=== PATIENT | female | born 1940 | race Caucasian/White ===

== ENCOUNTER 2019-10-08 20:04 | Emergency (ER) | payer MEDICARE, BC ==
[~2019-10-08] VITALS: Ht 154.9 cm; Wt 61.2 kg
[2019-10-08] MEDS ORDERED: ATOR20TA27 PO (20:14)
[2019-10-08] MEDS ORDERED: [UNRECOGNIZED DRUG - REMARK] (20:14)
[2019-10-08] MEDS ORDERED: ASPI81TA31 PO (20:14)
[2019-10-08] MEDS ORDERED: [UNRECOGNIZED DRUG - REMARK] (20:14)
--- NOTE | 2019-10-08 20:20 | NUR ---
Dr St into eval patient.
[2019-10-08] MEDS ORDERED: EPINEPHRINE 1 MG/1 ML AMP ONE (20:23)
[2019-10-08] MEDS ORDERED: EPINEPHRINE-PF 1:1000 1 MG/ML AMPUL IV ONE (20:30)
[2019-10-08 20:35] VITALS: BP 140/66
--- NOTE | 2019-10-08 20:35 | NUR ---
Patient discharged to home in stable conditon. Written and verbal after care instructions given. Patient verbalizes understanding of instructions. Walked out of ER with no distress noted.
== END 2019-10-08 20:37 | disposition home or self-care (01) ==
LOC: ER 20:08
DX: S01.512A Laceration without foreign body of oral cavity, initial encounter (principal); E78.5 Hyperlipidemia, unspecified; Z79.82 Long term (current) use of aspirin; Z79.899 Other long term (current) drug therapy; W50.3XXA Accidental bite by another person, initial encounter; Y93.89 Activity, other specified; Y92.89 Other specified places as the place of occurrence of the external cause; Y99.8 Other external cause status
CPT/HCPCS: 99282; J0171; A4663

== ENCOUNTER 2022-11-20 20:13 | Inpatient (IN) | payer MEDICARE, BC ==
[~2022-11-20] VITALS: Ht 157.5 cm; Wt 90.7 kg
[~2022-11-20 20:13] MED LIST: ASPI81TA31 PO; ATOR20TA27 PO; [UNRECOGNIZED DRUG - REMARK]; [UNRECOGNIZED DRUG - REMARK]
[2022-11-20] MEDS ORDERED: PROCHLORPERAZINE EDISYLATE 10 MG/2 ML VIAL IV ONE (21:30)
[2022-11-20 22:10] LABS: HEMATOCRIT 37.8 % (31.2-41.9); MEAN CORPUSCULAR HEMOGLOBIN 32.2 uug (24.7-32.8); MEAN CORPUSCULAR VOLUME 98.4 fL (75.5-95.3); PLATELET COUNT (AUTO) 209 K/uL (179-408)
[2022-11-20 22:35] LABS: ALANINE AMINOTRANSFERASE 43 U/L (14-59); ALKALINE PHOSPHATASE 69 U/L (50-136); ASPARTATE AMINOTRANSFERASE 31 U/L (15-37); BILIRUBIN,DIRECT 0.1 mg/dL (0.0-0.2); BILIRUBIN,TOTAL 0.3 mg/dL (0.2-1.0); CARBON DIOXIDE 29 mmol/L (21-32); CHLORIDE 105 mmol/L (98-107); CREATININE 1.1 mg/dL (0.6-1.3); GLUCOSE 188 mg/dL (74-106); POTASSIUM 4.4 mmol/L (3.5-5.1); TOTAL PROTEIN, SERUM 7.3 g/dL (6.4-8.2); UREA NITROGEN, BLOOD 29 mg/dL (7-18)
[2022-11-20] MEDS ORDERED: PROCHLORPERAZINE EDISYLATE 10 MG/2 ML VIAL ONE (22:43)
[2022-11-20 23:02] LABS: MAGNESIUM 1.8 mg/dL (1.8-2.4)
[2022-11-20] MEDS ORDERED: IV NS 1000 ML 1,000 ML IV ONE ×2 (23:30)
--- NOTE | 2022-11-21 00:34 | NUR ---
Consent signed for CT abd/pelvis w/ constrast.
[2022-11-21] MEDS ORDERED: RALO60TA PO (00:51)
[2022-11-21] MEDS ORDERED: SPIR25TA6 PO (00:51)
[2022-11-21] MEDS ORDERED: ATOR40TA PO (00:51)
[2022-11-21] MEDS ORDERED: FURO40TA5 PO (00:51)
[2022-11-21] MEDS ORDERED: DONE10TA44 PO (00:51)
[2022-11-21] MEDS ORDERED: DULO30CA2 PO (00:51)
[2022-11-21] MEDS ORDERED: TRAZ-257 PO (00:51)
[2022-11-21] MEDS ORDERED: IV NORMAL SALINE 250 ML IV ONE (01:13)
[2022-11-21] MEDS ORDERED: SWABABLE VALVE TRANSFER SET EA MC ONE (01:13)
[2022-11-21] MEDS ORDERED: IOHEXOL 350 100 ML INFUS..BTL ONE (01:13)
[2022-11-21] MEDS ORDERED: CEFTRIAXONE 1 G in IV DEXTROSE 5% 50 ML IV ONE (01:30)
[2022-11-21] MEDS ORDERED: AZITHROMYCIN IV 500 MG in IV DEXTROSE 5% 250 ML IV ONE (01:30)
--- NOTE | 2022-11-21 01:35 | NUR ---
Patient taken to CT via maria g accompanied by luis miguel
[2022-11-21] MEDS ORDERED: KETOROLAC TROMETHAMINE 60 MG INJ IM ONE (02:00)
[2022-11-21] MEDS ORDERED: CEFTRIAXONE /D5W 50ML IVPB **ER PYXIS IV ONE (02:18)
[2022-11-21] MEDS ORDERED: AZITHROMYCIN 500MG/ D5W 250ML IVPB **ER PYXIS ONLY IV ONE (02:44)
--- NOTE | 2022-11-21 02:51 | NUR ---
Patient resting comfortably in bed. No signs of distress noted.
[2022-11-21] MEDS ORDERED: MAGNESIUM HYDROXIDE 30 ML LIQUID UDC PO PRN (04:45)
[2022-11-21] MEDS ORDERED: CEFTRIAXONE 1 G in IV DEXTROSE 5% 50 ML IV SCH ×2 (04:45→22:00)
[2022-11-21] MEDS ORDERED: AZITHROMYCIN IV 500 MG in IV DEXTROSE 5% 250 ML IV SCH ×2 (04:45→23:00)
[2022-11-21] MEDS ORDERED: REMEDY ESSENTIAL ZINC PASTE 113 GM TP PRN (04:45)
[2022-11-21] MEDS ORDERED: ACETAMINOPHEN 325 MG TABLET PO PRN (04:45)
[2022-11-21] MEDS ORDERED: ONDANSETRON 4 MG/2 ML VIAL IV PRN (04:45)
[2022-11-21 06:23] LABS: HEMATOCRIT 34.9 % (31.2-41.9); MEAN CORPUSCULAR HEMOGLOBIN 31.8 uug (24.7-32.8); MEAN CORPUSCULAR VOLUME 99.4 fL (75.5-95.3); PLATELET COUNT (AUTO) 197 K/uL (179-408)
--- NOTE | 2022-11-21 06:27 | NUR ---
Patient has been admitted to third floor tele room 319
--- NOTE | 2022-11-21 06:27 | NUR ---
Dr. Valentin on panel call with Billy WOLFE. Pending admission.
--- NOTE | 2022-11-21 06:30 | NUR ---
Per Charge nurse Susan, patient to be admitted after 0730am.
[2022-11-21 06:42] LABS: CARBON DIOXIDE 29 mmol/L (21-32); CHLORIDE 107 mmol/L (98-107); CHOLESTEROL 163 mg/dL (<200); CREATININE 0.8 mg/dL (0.6-1.3); GLUCOSE 113 mg/dL (74-106); HDL CHOLESTEROL 67 mg/dL (40-60); MAGNESIUM 1.8 mg/dL (1.8-2.4); POTASSIUM 5.2 mmol/L (3.5-5.1); TRIGLYCERIDES 44 MG/DL (30-150); UREA NITROGEN, BLOOD 25 mg/dL (7-18)
--- NOTE | 2022-11-21 07:49 | NUR ---
*unverified meds: IV Rocephin and IV Zithromax were given at around 0230am today by previous RN shift
[2022-11-21 08:58] VITALS: BP 113/51
--- NOTE | 2022-11-21 09:00 | NUR ---
patient admitted from ER, alert, oriented to her name and place, very forgetful. no sob, respirations are even nonlabored, skin warm and dry to touch, on 2 liter o2 via nasal canula, no skin issues noted.
[2022-11-21] MEDS: ENOXAPARIN SODIUM 40 MG/0.4 ML DISP.SYRIN SQ SCH (10:05)
[2022-11-21 11:35] VITALS: BP 120/46
[2022-11-21 12:33] LABS: *BILIRUBIN,URIN NEGATIVE (NEGATIVE); *BLOOD, URINE NEGATIVE (NEGATIVE); *CLARITY,URINE CLEAR (CLEAR); *COLOR,URINE YELLOW (YELLOW); *KETONES,URINE NEGATIVE (NEGATIVE); *UROBILINOGEN,URINE 0.2 E.U./dl (NORMAL); LEUKOCYTE ESTERASE ,URINE NEGATIVE (NEGATIVE); NITRITE, URINE NEGATIVE (NEGATIVE); UGLUCOSE NEGATIVE (NEGATIVE)
--- NOTE | 2022-11-21 14:16 | NUR ---
patient son requested foster care social worker stated her mother forgets, last week she went for her dental appointment and she got lost, and it happens now frequently. foster care social worker consult made to follow up with son regarding that issue.
[2022-11-21 16:32] VITALS: BP 103/39
[2022-11-21] MEDS ORDERED: DULOXETINE 30 MG CAPSULE.DR PO SCH (17:00)
--- NOTE | 2022-11-21 17:58 | NUR ---
patient stated she has cpap at home as needed, but not using is currently, because not working. patient stated she uses only oxygen at night. offered patient to use CPAP here however patient stated she is fine with oxygen at night. patient does not want to use cpap here.
[2022-11-21] MEDS ORDERED: TRAZODONE 100 MG TABLET PO SCH (18:00)
[2022-11-21] MEDS ORDERED: ATORVASTATIN 40 MG TABLET PO SCH (18:00)
[2022-11-21 20:00] VITALS: BP 108/56
[2022-11-21] MEDS ORDERED: DONEPEZIL 10 MG TABLET PO SCH (21:00)
--- NOTE | 2022-11-21 21:03 | NUR ---
Patient refused CPAP machine states that the tubings are too big; she has to squeeze and hold them to keep them in place.
[2022-11-22] VITALS: BP 111/58
[2022-11-22 04:00] VITALS: BP 118/58
[2022-11-22 05:33] LABS: HEMATOCRIT 33.5 % (31.2-41.9); MEAN CORPUSCULAR HEMOGLOBIN 31.9 uug (24.7-32.8); MEAN CORPUSCULAR VOLUME 98.1 fL (75.5-95.3); PLATELET COUNT (AUTO) 176 K/uL (179-408)
[2022-11-22 05:46] LABS: MAGNESIUM 2.1 mg/dL (1.8-2.4); PHOSPHOROUS 4.1 mg/dL (2.5-4.9); POTASSIUM 4.3 mmol/L (3.5-5.1)
[2022-11-22] MEDS: ENOXAPARIN SODIUM 40 MG/0.4 ML DISP.SYRIN SQ SCH (08:26)
[2022-11-22] MEDS ORDERED: FUROSEMIDE 40 MG TABLET PO SCH (09:00)
[2022-11-22] MEDS ORDERED: SPIRONOLACTONE 25 MG TABLET PO SCH (09:00)
[2022-11-22] MEDS ORDERED: RALOXIFENE HCL 60 MG TABLET PO SCH (09:00)
[2022-11-22] MEDS ORDERED: DULOXETINE 30 MG CAPSULE.DR PO SCH (09:00)
[2022-11-22 12:00] VITALS: BP 126/53
[2022-11-22] MEDS ORDERED: CEPH250C PO (13:36)
--- NOTE | 2022-11-22 14:27 | NUR ---
Patient is discharged home, stable condition, no sob, respiration are even nonlabored, skin warm and dry to touch, saturating high 90s on room air. discharge instructions given to patient and her , instructed to pear picker prescription medication from [facility] pharmacy. verbalized understanding of it. belongings are accounted and signed. skin intact. IV removed, ID removed, patient son Hector had long conversation with YANETH Madsen twice about her mother's concerns.
[2022-11-22] MEDS ORDERED: ATORVASTATIN 40 MG TABLET PO SCH (21:00)
[2022-11-22] MEDS ORDERED: TRAZODONE 100 MG TABLET PO SCH (21:00)
== END 2022-11-22 13:40 | disposition home or self-care (01) | DRG 689 ==
LOC: ER 20:16 → TELE3 11-21 08:14
PROVIDERS: ADMIT Nurse Practitioner Acute Care; ATTEND Nurse Practitioner Acute Care
DX: N39.0 Urinary tract infection, site not specified (principal); G93.41 Metabolic encephalopathy; J96.90 Respiratory failure, unspecified, unspecified whether with hypoxia or hypercapnia; I50.32 Chronic diastolic (congestive) heart failure; F03.93 Unspecified dementia, unspecified severity, with mood disturbance; M48.56XA Collapsed vertebra, not elsewhere classified, lumbar region, initial encounter for fracture; M48.54XA Collapsed vertebra, not elsewhere classified, thoracic region, initial encounter for fracture; G89.29 Other chronic pain; R11.2 Nausea with vomiting, unspecified; E87.5 Hyperkalemia; E78.5 Hyperlipidemia, unspecified; Z96.653 Presence of artificial knee joint, bilateral; Z98.1 Arthrodesis status; Z87.891 Personal history of nicotine dependence; Z98.49 Cataract extraction status, unspecified eye; Z79.82 Long term (current) use of aspirin; Z79.899 Other long term (current) drug therapy; R94.31 Abnormal electrocardiogram [ECG] [EKG]; I45.10 Unspecified right bundle-branch block; Z98.890 Other specified postprocedural states; Z20.822 Contact with and (suspected) exposure to COVID-19; Z86.69 Personal history of other diseases of the nervous system and sense organs
CPT/HCPCS: 36415; 70450; 71045; 71260; 71275; 83735; 84100; 84484; 85025; 93005; C1758; G0378; J0456; J0696; J0780; J1650; J7040; J7050; Q9967